=== PATIENT | male | born 1950 | race Caucasian/White ===

== ENCOUNTER 2025-02-18 08:11 | Day surgery (SDC) | payer MEDICAID, MEDICARE ==
[2025-02-18] MEDS: Lactated Ringers 1,000 ML IV SCH (08:33)
[2025-02-18] MEDS ORDERED: Propofol 200 MG/20 ML SDV ONE (08:43)
[2025-02-18] MEDS ORDERED: fentaNYL 100 MCG/2 ML SDV ONE (08:51)
== END 2025-02-18 12:00 | disposition home or self-care (01) ==
LOC: VM.SDS 08:11
PROVIDERS: ATTEND Family Medicine
DX: Z12.11 Encounter for screening for malignant neoplasm of colon (principal); D12.5 Benign neoplasm of sigmoid colon; K63.5 Polyp of colon; K63.89 Other specified diseases of intestine; K25.9 Gastric ulcer, unspecified as acute or chronic, without hemorrhage or perforation; I10 Essential (primary) hypertension; E78.2 Mixed hyperlipidemia; K21.9 Gastro-esophageal reflux disease without esophagitis; E66.9 Obesity, unspecified; Z68.33 Body mass index [BMI] 33.0-33.9, adult; Z88.8 Allergy status to other drugs, medicaments and biological substances; Z86.0100 Personal history of colon polyps, unspecified; Z79.899 Other long term (current) drug therapy
CPT/HCPCS: 00811; 88305; 88341; 88342; 99100; J2704; J3010; J7120